=== PATIENT | male | born 1985 | race Caucasian/White ===

== ENCOUNTER 2017-02-18 09:12 | Emergency (ER) | payer MEDICAID ==
[~2017-02-18] VITALS: Ht 180.3 cm; Wt 99.8 kg
[~2017-02-18 09:12] MED LIST: CITA10TA59
[2017-02-18 09:21] VITALS: BP 167/98
[2017-02-18] MEDS ORDERED: IBUPROFEN 600 MG TAB PO ONE ×2 (10:15→10:30)
== END 2017-02-18 10:21 | disposition home or self-care (01) ==
LOC: ER 09:12
DX: B07.9 Viral wart, unspecified (principal)

== ENCOUNTER 2017-07-25 09:17 | Emergency (ER) | payer MEDICAID ==
[~2017-07-25] VITALS: Ht 180.3 cm; Wt 111.1 kg
[2017-07-25 10:15] VITALS: BP 137/92
== END 2017-07-25 10:22 | disposition home or self-care (01) ==
LOC: ER 09:17
DX: F41.9 Anxiety disorder, unspecified (principal); F17.210 Nicotine dependence, cigarettes, uncomplicated; Z90.49 Acquired absence of other specified parts of digestive tract
CPT/HCPCS: 93005

== ENCOUNTER 2017-07-27 16:13 | Emergency (ER) | payer MEDICAID ==
[~2017-07-27] VITALS: Ht 175.3 cm; Wt 104.3 kg
[2017-07-27 16:35] VITALS: BP 171/115
== END 2017-07-27 20:07 | disposition left against medical advice (07) ==
LOC: ER 16:13 → EDBD 16:13 → ER 20:07
DX: R51 Headache (principal); Z53.21 Procedure and treatment not carried out due to patient leaving prior to being seen by health care provider; Y09 Assault by unspecified means
CPT/HCPCS: 70486

== ENCOUNTER 2019-10-27 09:27 | Emergency (ER) | payer MEDICAID, OTHER ==
[~2019-10-27] VITALS: Ht 180.3 cm; Wt 115.7 kg
[2019-10-27 10:15] VITALS: BP 148/87
== END 2019-10-27 10:22 | disposition home or self-care (01) ==
LOC: ER 09:27
DX: I10 Essential (primary) hypertension (principal); F41.9 Anxiety disorder, unspecified; F17.210 Nicotine dependence, cigarettes, uncomplicated; F12.10 Cannabis abuse, uncomplicated; Z90.49 Acquired absence of other specified parts of digestive tract; Z76.0 Encounter for issue of repeat prescription

== ENCOUNTER 2020-05-15 12:51 | Emergency (ER) | payer OTHER ==
[~2020-05-15] VITALS: Ht 180.3 cm; Wt 127.0 kg
[2020-05-15 13:00] VITALS: BP 161/98
== END 2020-05-15 13:35 | disposition home or self-care (01) ==
LOC: ER 12:51
DX: I10 Essential (primary) hypertension (principal); Z76.0 Encounter for issue of repeat prescription

== ENCOUNTER 2020-10-21 11:50 | Emergency (ER) | payer MEDICAID, OTHER ==
[~2020-10-21] VITALS: Ht 180.3 cm; Wt 113.4 kg
[~2020-10-21 11:50] MED LIST changes: -CITA10TA59; +CITA10TA8
[2020-10-21 12:59] VITALS: BP 160/87
[2020-10-21] MEDS ORDERED: KETOROLAC TROMETH 60MG/2ML VIAL IM ONE (13:15)
== END 2020-10-21 13:27 | disposition home or self-care (01) ==
LOC: ER 11:50
DX: R07.81 Pleurodynia (principal); I10 Essential (primary) hypertension; Z90.49 Acquired absence of other specified parts of digestive tract; W19.XXXA Unspecified fall, initial encounter; Y93.89 Activity, other specified; Y92.89 Other specified places as the place of occurrence of the external cause; Y99.8 Other external cause status
CPT/HCPCS: 71101; 96372; 99283; J1885

== ENCOUNTER 2020-10-29 19:15 | Emergency (ER) | payer MEDICAID ==
[~2020-10-29] VITALS: Ht 182.9 cm; Wt 113.4 kg
[2020-10-29 20:20] LABS: Basophils # (auto) 0 10 ^3/uL (0-0.2); Eosinophils # (auto) 0.1 10 ^3/uL (0-0.8); Hemoglobin 17.9 g/dL (13.5-17.5); Lymphocytes # (auto) 1.7 10 ^3/uL (0.4-5.4); Monocytes # (auto) 0.7 10 ^3/uL (0-1.3); Nucleated Red Blood Cells % 0.1 %; White Blood Cell 11.9 10^3/uL (4.4-10.8)
[2020-10-29 20:22] LABS: BUN/Creatinine Ratio 6.7; Basophils % (auto) 0.4 % (0.0-2.0); Calcium 8.6 mg/dL (8.5-10.1); Eosinophils % (auto) 0.5 % (0.0-7.0); Hematocrit 51.5 % (41.0-53.0); Lymphocytes % (auto) 14.5 % (10.0-50.0); Mean Corpuscular Hemoglobin 33.3 pg (28.0-32.0); Mean Corpuscular Hgb Conc. 34.8 g/dL (32.0-36.0); Mean Corpuscular Volume 95.7 fL (80.0-100.0); Monocytes % (auto) 6.2 % (0.0-12.0); Neutrophils # (auto) 9.3 10 ^3/uL (1.6-8.6); Neutrophils % (auto) 78.4 % (37.0-80.0); Platelet Count (auto) 245 10^3/uL (140-450); Potassium 3.9 mmol/L (3.5-5.1); Red Blood Cells 5.38 10^6/uL (4.5-5.90); Red Cell Distribution Width 13.6 % (11.8-14.3)
[2020-10-29 20:25] LABS: Bilirubin, Total 0.3 mg/dL (0.2-1.0); Total Protein 8.2 g/dL (6.4-8.2)
[2020-10-30] MEDS ORDERED: ACETAMINOPHEN 325 MG TAB PO STA (02:26)
[2020-10-30 05:17] VITALS: BP 155/91
== END 2020-10-30 06:53 | disposition home or self-care (01) ==
LOC: ER 19:15
DX: S00.212A Abrasion of left eyelid and periocular area, initial encounter (principal); R51.9 Headache, unspecified; M54.2 Cervicalgia; F17.210 Nicotine dependence, cigarettes, uncomplicated; I10 Essential (primary) hypertension; F41.9 Anxiety disorder, unspecified; F10.20 Alcohol dependence, uncomplicated; Y90.6 Blood alcohol level of 120-199 mg/100 ml; Y08.89XA Assault by other specified means, initial encounter; Y93.89 Activity, other specified; Y92.89 Other specified places as the place of occurrence of the external cause; Y99.8 Other external cause status
CPT/HCPCS: 36415; 70450; 70486; 72125; 80053; 80320; 85025